=== PATIENT | male | born 1985 | race Caucasian/White ===

== ENCOUNTER 2016-12-28 05:43 | Emergency (ER) | payer MEDICAID ==
[~2016-12-28] VITALS: Ht 180.3 cm; Wt 131.7 kg
[~2016-12-28 05:43] MED LIST: ACET325T14 PO; AMOX1TAB64 PO; BUSP15TA PO; CEPH-368 PO; CITA40TA5 PO; LEVO75TA5 PO; MELA5TAB PO; OXYC-302 PO
[2016-12-28 05:44] VITALS: BP 164/107
== END 2016-12-28 06:23 | disposition home or self-care (01) ==
LOC: ED 06:17
DX: J01.00 Acute maxillary sinusitis, unspecified (principal)
CPT/HCPCS: 99283